=== PATIENT | female | born 1990 | race African-American/Black ===

== ENCOUNTER 2023-08-08 21:52 | Emergency (ER) | payer MEDICAID ==
[~2023-08-08] VITALS: Ht 157.5 cm; Wt 90.7 kg
[2023-08-08] MEDS ORDERED: LEVO50TA PO (22:02)
[2023-08-08] MEDS ORDERED: predniSONE 20 MG TABLET ONE (22:20)
[2023-08-08] MEDS ORDERED: FAMOTIDINE 20 MG TABLET ONE (22:20)
[2023-08-08] MEDS ORDERED: diphenhydrAMINE 50 MG/1 ML VIAL ONE (22:20)
[2023-08-08] MEDS: diphenhydrAMINE 50 MG/1 ML VIAL IM ONE (22:27)
[2023-08-08] MEDS: predniSONE 20 MG TABLET PO ONE (22:27)
[2023-08-08] MEDS: FAMOTIDINE 20 MG TABLET PO ONE (22:27)
[2023-08-08 22:31] VITALS: BP 129/74; TEMP 98.5; O2SAT 99
== END 2023-08-08 22:31 | disposition home or self-care (01) ==
LOC: ER 21:59
DX: L50.9 Urticaria, unspecified (principal); E03.9 Hypothyroidism, unspecified; Z79.899 Other long term (current) drug therapy
CPT/HCPCS: 99283; 96372; J7512; J1200; A4606; A4663